=== PATIENT | female | born 1965 | race Caucasian/White ===

== ENCOUNTER 2022-05-20 13:23 | Outpatient (CLI) | payer BC ==
[~2022-05-20 13:23] MED LIST: Iopamidol 300 61% 100 ML VIAL FS ONE
== END 2022-05-20 13:24 | disposition home or self-care (01) ==
LOC: CSHCT 13:23
PROVIDERS: ATTEND Internal Medicine Hematology & Oncology
DX: C50.412 Malignant neoplasm of upper-outer quadrant of left female breast (principal); C79.51 Secondary malignant neoplasm of bone; C78.7 Secondary malignant neoplasm of liver and intrahepatic bile duct; J90 Pleural effusion, not elsewhere classified; N32.89 Other specified disorders of bladder
CPT/HCPCS: 71260; 74177

== ENCOUNTER 2022-06-02 09:58 | Outpatient (CLI) | payer BC ==
[2022-06-02] MEDS ORDERED: Magnevist 469MG/ML 20 ML VIAL ONE (10:15)
== END 2022-06-02 09:59 | disposition home or self-care (01) ==
LOC: CSHMRI 09:58
PROVIDERS: ATTEND Internal Medicine Hematology & Oncology
DX: C79.31 Secondary malignant neoplasm of brain (principal); C50.412 Malignant neoplasm of upper-outer quadrant of left female breast; C79.51 Secondary malignant neoplasm of bone; Z92.3 Personal history of irradiation; G93.89 Other specified disorders of brain; R90.82 White matter disease, unspecified; H70.91 Unspecified mastoiditis, right ear
CPT/HCPCS: 70553

== ENCOUNTER 2022-08-11 11:51 | Outpatient (CLI) | payer BC ==
[~2022-08-11 11:51] MED LIST changes: -Iopamidol 300 61% 100 ML VIAL FS ONE; +Magnevist 469MG/ML 20 ML VIAL ONE
== END 2022-08-11 11:52 | disposition home or self-care (01) ==
LOC: CSHCT 11:51
PROVIDERS: ATTEND Internal Medicine Hematology & Oncology
DX: C50.412 Malignant neoplasm of upper-outer quadrant of left female breast (principal); C79.31 Secondary malignant neoplasm of brain; C79.51 Secondary malignant neoplasm of bone; C78.7 Secondary malignant neoplasm of liver and intrahepatic bile duct; E11.9 Type 2 diabetes mellitus without complications; N32.9 Bladder disorder, unspecified; H74.8X1 Other specified disorders of right middle ear and mastoid
CPT/HCPCS: 70553; 71260; 74177; A9579

== ENCOUNTER 2022-10-02 14:07 | Outpatient (CLI) | payer BC | END 2022-10-02 14:08 | disposition home or self-care (01) | LOC: CSHMRI 14:07 | PROVIDERS: ATTEND Radiology Radiation Oncology | DX: C79.31 Secondary malignant neoplasm of brain (principal); C50.919 Malignant neoplasm of unspecified site of unspecified female breast; C79.51 Secondary malignant neoplasm of bone | CPT/HCPCS: 70553 ==

== ENCOUNTER 2022-10-20 12:18 | Outpatient (CLI) | payer BC ==
[~2022-10-20 12:18] MED LIST changes: +Iopamidol 300 61% 100 ML VIAL FS ONE; -Magnevist 469MG/ML 20 ML VIAL ONE
== END 2022-10-20 12:19 | disposition home or self-care (01) ==
LOC: CSHCT 12:18
PROVIDERS: ATTEND Internal Medicine Hematology & Oncology
DX: C50.919 Malignant neoplasm of unspecified site of unspecified female breast (principal); C79.51 Secondary malignant neoplasm of bone; C78.00 Secondary malignant neoplasm of unspecified lung; C78.7 Secondary malignant neoplasm of liver and intrahepatic bile duct
CPT/HCPCS: 71260; 74177; 82565